=== PATIENT | female | born 1960 | race African-American/Black ===

== ENCOUNTER 2022-08-12 08:49 | Day surgery (SDC) | payer OTHER ==
[~2022-08-12] VITALS: Ht 162.6 cm; Wt 70.3 kg
[~2022-08-12 08:49] MED LIST: MULTIVITAMI9 PO; OMEGA 31000 MG PO
[2022-08-12 12:21] VITALS: BP 148/81
[2022-08-12] MEDS ORDERED: PERCOCET 5/321 COMBO PO (12:36)
== END 2022-08-12 12:54 | disposition home or self-care (01) | DRG 349 ==
LOC: ENDO 08:49 → ORM 12:15 → ENDO 12:15
PROVIDERS: ATTEND Surgery
PROC: 06BY3ZC Excision of Hemorrhoidal Plexus, Percutaneous Approach (ICD-10-PCS; principal; 2022-08-12)
PROC: 0DJD8ZZ Inspection of Lower Intestinal Tract, Via Natural or Artificial Opening Endoscopic (ICD-10-PCS; 2022-08-12)
DX: K64.2 Third degree hemorrhoids (principal); Z12.11 Encounter for screening for malignant neoplasm of colon; K57.30 Diverticulosis of large intestine without perforation or abscess without bleeding
CPT/HCPCS: C9290; J0131